=== PATIENT | female | born 1960 | race African-American/Black ===

== ENCOUNTER → 2017-02-04 | Outpatient (CLI) | payer OTHER | LOC: MHCPAIN 12:07 | DX: G89.29 Other chronic pain (principal); M47.27 Other spondylosis with radiculopathy, lumbosacral region; M53.3 Sacrococcygeal disorders, not elsewhere classified | CPT/HCPCS: G0463 ==

== ENCOUNTER → 2017-02-24 | Outpatient (CLI) | payer OTHER | LOC: MHCPAIN 07:58 | DX: M47.27 Other spondylosis with radiculopathy, lumbosacral region (principal); M99.53 Intervertebral disc stenosis of neural canal of lumbar region | CPT/HCPCS: J1100; J2250; J3010; Q9967 ==

== ENCOUNTER → 2017-03-14 | Outpatient (CLI) | payer OTHER | LOC: MHCPAIN 10:13 | DX: G89.29 Other chronic pain (principal); M47.27 Other spondylosis with radiculopathy, lumbosacral region; M53.3 Sacrococcygeal disorders, not elsewhere classified | CPT/HCPCS: G0463 ==

== ENCOUNTER → 2017-03-31 | Outpatient (CLI) | payer OTHER | LOC: MHCPAIN 10:09 | DX: M47.27 Other spondylosis with radiculopathy, lumbosacral region (principal); M99.53 Intervertebral disc stenosis of neural canal of lumbar region; Q76.49 Other congenital malformations of spine, not associated with scoliosis | CPT/HCPCS: J1100; J2250; J3010; Q9967 ==

== ENCOUNTER → 2017-04-13 | Outpatient (CLI) | payer OTHER | LOC: MHCPAIN 10:09 | DX: G89.29 Other chronic pain (principal); M47.27 Other spondylosis with radiculopathy, lumbosacral region; M48.061 Spinal stenosis, lumbar region without neurogenic claudication | CPT/HCPCS: G0463 ==

== ENCOUNTER → 2017-04-19 | Outpatient (CLI) | payer OTHER | LOC: MHCPAIN 10:09 | DX: M54.17 Radiculopathy, lumbosacral region (principal) | CPT/HCPCS: J1040 ==

== ENCOUNTER → 2017-05-02 | Outpatient (CLI) | payer OTHER | LOC: MHCPAIN 10:04 | DX: G89.29 Other chronic pain (principal); M47.27 Other spondylosis with radiculopathy, lumbosacral region; M53.3 Sacrococcygeal disorders, not elsewhere classified; M48.061 Spinal stenosis, lumbar region without neurogenic claudication | CPT/HCPCS: G0463 ==

== ENCOUNTER → 2017-05-12 | Outpatient (CLI) | payer OTHER | LOC: MHCPAIN 07:43 | DX: M47.817 Spondylosis without myelopathy or radiculopathy, lumbosacral region (principal); Q76.49 Other congenital malformations of spine, not associated with scoliosis | CPT/HCPCS: J1040; J2250; J3010; Q9967 ==

== ENCOUNTER → 2017-06-08 | Outpatient (CLI) | payer OTHER | LOC: MHCPAIN 09:59 | DX: G89.29 Other chronic pain (principal); M47.817 Spondylosis without myelopathy or radiculopathy, lumbosacral region; M54.16 Radiculopathy, lumbar region; M53.3 Sacrococcygeal disorders, not elsewhere classified; M48.061 Spinal stenosis, lumbar region without neurogenic claudication | CPT/HCPCS: G0463 ==

== ENCOUNTER 2017-08-30 21:07 | Emergency (ER) | payer OTHER ==
[~2017-08-30] VITALS: Ht 167.6 cm; Wt 93.6 kg
[2017-08-30 21:09] VITALS: TEMP 98.1
[2017-08-30 21:25] LABS: COLLECTION METHOD CLEAN CATCH
[2017-08-30 21:33] LABS: PH 7 (5-8); SQUAMOUS EPITHELIAL 0-2 /hpf; URINE APPEARANCE Clear; URINE BACTERIA Rare /hpf; URINE BILIRUBIN Negative (NEGATIVE); URINE BLOOD 1+ (NEGATIVE); URINE COLOR Yellow; URINE GLUCOSE Negative (NEGATIVE); URINE KETONE Negative (NEGATIVE); URINE LEUKOCYTE ESTERASE Negative (NEGATIVE); URINE NITRATE Negative (NEGATIVE); URINE PROTEIN(semi-quant) Negative (NEGATIVE); URINE UROBILINOGEN Negative (NEGATIVE)
[2017-08-30] MEDS ORDERED: GRALISE300 MG PO (21:35)
[2017-08-30] MEDS ORDERED: ULTRAM 50MG TAB50 MG PO (21:35)
[2017-08-30] MEDS ORDERED: ZANAFLEX 4MG TAB4 MG PO (21:36)
[2017-08-30] MEDS ORDERED: MICARDIS40 MG PO (21:37)
[2017-08-30] MEDS ORDERED: HCTZ 25MG TAB25 MG PO (21:37)
[2017-08-30] MEDS ORDERED: NORCO 325 MG-7.1 TAB PO (21:40)
[2017-08-30 23:25] VITALS: PULSE 86
== END 2017-08-30 23:30 | disposition home or self-care (01) ==
LOC: COL.ER 21:07
PROVIDERS: Emergency Medicine
DX: M48.00 Spinal stenosis, site unspecified (principal); M54.30 Sciatica, unspecified side
CPT/HCPCS: J3010